=== PATIENT | female | born 1975 | race Caucasian/White ===

== ENCOUNTER 2021-02-12 11:27 | Day surgery (SDC) | payer OTHER, SELFPAY ==
[2021-02-12] VITALS (9 sets, daily range): BP systolic 113–149; BP diastolic 54–90; PULSE 59–85; RESP 14–16; TEMP 36.2–37.3; O2SAT 94–100; BMI 30.1
--- NOTE | 2021-02-12 11:56 | HP.PCM_ITS ---
HPI - General HPI Narrative ISHA RENTERIA, is a 45 F who presents for urethral dilation and cystoscopy under anesthesia. She presented to the office with urgency, straining to void and nocturia. Attempt was made at performing the cystoscopy in the office, and the urethra was too small to accommodate the cystoscope. Due to discomfort, an a ttempt was not made at dilation without anesthesia. Informed consent was obtained for this procedure. [facility] Medical History (Updated 02/12/21 @ 12:[address] Radah Telles MD) Asthma Hypertension Nocturia Non-smoker Other urethral stricture, female Stranguria Urgency of micturition Wears contact lenses Wears glasses Home Medications lactobacillus combination no.4 [Probiotic] 3,000 mmu cells PO DAILY 02/05/21 [History Last Taken Unknown] nitrofurantoin monohyd/m-cryst 100 mg PO BID 02/12/21 [History Last Taken Unknown] Allergy/AdvReac Type Severity Reaction Status Date / Time Penicillins Allergy Mild unknown Verified 02/12/21 11:49 Family History Mother Hypertension Heart disease Father Myocardial infarction Surgical History S/P Tubal ligation status Social History Smoking Status: Never smoker alcohol intake: current alcohol intake frequency: holidays/special occasions only substance use type: does not use caffeine: No what type of physical activity do you participate in: aerobics and weight training frequency: 3-4 times per week seatbelt use: always do you feel safe at home: Yes additional social history: - Carlos- Installs yessicaing Patient is gas station service attendant ROS ROS Narrative Patient has no fever, chills, fatigue or malaise. No change in vision, hearing and no issues with swallowing. No shortness of breath, cough or increased sputum. There is no chest pain or irregular heartbeat. She denies nausea, vomiting, diarrhea or other GI complaints. She has no increase in flank pain, esthela int pain or other specific musculoskeletal concerns. She denies rash, skin lesion, itching. No swelling or edema. She denies any other new neurologic, psychiatric or immunologic issues. Physical Exam Const alert, oriented x3 and no apparent distress HEENT normocephalic, head/scalp atraumatic, external ears normal, external nose normal and moist oral mucous membranes Eyes conjunctivae normal and no scleral icterus General Eye: normal appearance of both eyes Neck supple General: normal visual inspection and trachea midline Lymph Lymphatic: no lymphedema noted Chest inspection of chest normal Chest: symmetrical chest wall rise Resp normal respiratory effort, normal air movement, no retractions and no use of accessory muscles Cardio regular rate and regular rhythm GI soft to palpation, non-tender and non-distended no CVA tenderness Back/Spine no CVA tenderness and normal to inspection Extremity normal to inspection Skin no rashes or lesions noted, no wounds, skin turgor normal, no jaundice, no petechiae and no mottling Neuro oriented x3, CN's II-XII intact bilaterally and moves all extremities Psych mental status grossly normal, thought process normal, cooperative and affect normal Assessment & Plan Assessment/Plan (1) Other urethral stricture, female: PLAN: urethral dilation, cystoscopy under anesthesia. Informed consent was obtained. (2) Stranguria: (3) Urgency of micturition: (4) Nocturia: Procedure Criteria Type of Procedure Procedure Type: Elective Elective Risks - COVID COVID Risk Discussion: The surgeon/proceduralist and patient have discussed in detail the risk of exposure to and/or potential harm posed by the COVID-19 virus with having a surgery/procedure at this time versus the risk of delaying the surgery/procedure. It is not possible to know either the risk of delaying the surgery or procedure or chance of getting an infection with perfect accuracy, but a joint decision was made between the patient and the surgeon/proceduralist to proceed at this time with the scheduled surgery/procedure as indicated on the consent form.
--- NOTE | 2021-02-12 12:03 | PCM.OPRPT ---
Problems Associated Problem List Diagnoses (1) Nocturia: (2) Urgency of micturition: (3) Stranguria: (4) Other urethral stricture, female: Report of Operation Date of Procedure: 02/12/21 Pre-Operative Diagnosis: urethral stricture, urgency, nocturia, stranguria Post-Operative Diagnosis: same Surgery/Procedure Performed:: urethral dilation, cystoscopy Surgeon: Radha Telles Type of Anesthesia: MAC Description of Procedure: The patient is a 45-year-old female presented to the office with complaints of straining to void, increased urinary urgency and nocturia. An attempt was made to evaluate her in the office with cystoscopy. Her urethral meatus was too small to accommodate the scope and it was too uncomfortable to dilate her. She now presents for urethral dilation and cystoscopy under anesthesia. Informed consent was obtained. The patient was taken to the operating room and placed on the operating room table. Anesthesia monitored the head, neck, airway, IV access and vital signs throughout the case. Once anesthesia was appropriate ministered the patient was placed into dorsal lithotomy position was prepped and draped in usual sterile fashion. At this point the urethra was dilated from [address] to 26 Albanian with cracking of the mucosa mildly. The cystoscope was then inserted through the urethra under direct visualization into the urinary bladder. The bladder mucosa was visualized in its entirety with a 70 degree lens. There were no areas of erythema, ulceration or foreign body identified. There was mild trabeculation of the bladder muscle present. The ureteral orifices were located in the correct anatomic position on the trigone. At this time the bladder was emptied and the case was terminated. The patient was awakened and taken to the recovery room in good condition. There were no complications during this procedure. Grafts/Implants Used: None Complications None Admit VTE Documentation VTE Present on Admission: Yes VTE Mechan Device Prophylaxis: SCD's VTE Pharm Prophylaxis ordered?: No Reason prophylaxis not ordered:: Treatment Not Indicated
--- NOTE | 2021-02-12 12:04 | PCM.DC ---
Discharge Instructions Diet Discharge Diet: No restrictions Activity Discharge Activity: Return to Normal Activity May resume sexual activity in: 1 week Dressing / Incision Call your doctor if your incision/area has: Continuous Slow Oozing, Sudden Increased Bleeding, Increased Pain/ Swelling and Foul Smelling Discharge Call your doctor if you observe: Fever of 101 or Higher, Inability to urinate, Inability to have a bowel movement, Calf discomfort and Uncontrolled pain Follow Up Care Please Follow Up With: Radha Telles MD When: call office for appt in 1-2 weeks Test Results: Test results from this visit will be discussed in further detail at your follow-up appointment, if applicable. Discharge Plan Admission Attending Provider: Radha Telles Primary Care Provider: Monica Burton Discharge Orders/Prescriptions Prescriptions: New oxycodone-acetaminophen [oxycodone-acetaminophen] 1 TABLET tablet 2 tab PO Q8H PRN PRN (Reason: Pain) 3 Days Qty: 10 RF: 0 phenazopyridine [Pyridium] 200 MG tablet 200 mg PO TID PRN PRN (Reason: Bladder Spasms) 7 Days Qty: 30 RF: 0 Continued Probiotic 3 billion cell Capsule 3,000 mmu cells PO DAILY RF: 0 nitrofurantoin monohyd/m-cryst 100 mg capsule 100 mg PO BID RF: 0 Referrals / Follow Up: Monica Burton PA [Primary Care Provider] - Disposition Disposition (needs filled in before D/C Order can be placed): Home, Self Care
[2021-02-12] MEDS: Lactated Ringers 1,000 ML 100 ML IV ×2 (12:10→13:35)
[2021-02-12] MEDS: Cefazolin 2 GM in 0.9% Normal Saline 100 ML IV (13:17)
--- NOTE | 2021-02-12 13:54 | EKG12_ITS ---
Test Reason : Blood Pressure : / mmHG Vent. Rate : 068 BPM Atrial Rate : 068 BPM P-R Int : 198 ms QRS Dur : 132 ms QT Int : 456 ms P-R-T Axes : 056 -56 029 degrees QTc Int : 484 ms Normal sinus rhythm with sinus arrhythmia Left axis deviation Left bundle branch block Abnormal ECG Confirmed by CASSIA DUCKWORTH, BRITTANIE ([id number]), newspaper copy editor SOLITARIO PICHARDO ([id number]) on 02/14/2021 10:48:47 AM Referred By: Radha Telles Confirmed By:BRITTANIE ANTONY MD
== END 2021-02-12 17:10 | disposition home or self-care (01) ==
LOC: SDC 11:28 → AC 11:29
PROVIDERS: PCP Physician Assistant; Referring Provider Urology; Visit Provider Urology
PROC: 0T7D8ZZ Dilation of Urethra, Via Natural or Artificial Opening Endoscopic (ICD-10-PCS; CPT 52281; principal; 2021-02-12 12:50)
DX: N35.82 Other urethral stricture, female (principal); R30.0 Dysuria; R39.15 Urgency of urination; R35.1 Nocturia
CPT/HCPCS: 52281; 87426; 93005; C9803; J7120; J2405

== ENCOUNTER → 2021-06-12 | Outpatient (CLI) | payer OTHER, SELFPAY ==
[2021-06-12 18:01] LABS: Progesterone Level 0.84 ng/mL (See Comment)
[2021-06-12 18:17] LABS: Estradiol 328.8 pg/mL; Follicle Stimulating Hormone 8.3 mIU/mL; Luteinizing Hormone 11.7 mIU/mL; Prolactin 16.4 ng/mL; Thyroid Stim Hormone (TSH) 1.54 uIU/mL (0.358-3.74)
== END | disposition home or self-care (01) ==
LOC: WOBLAB 15:49
PROVIDERS: PCP Physician Assistant; Visit Provider Student in an Organized Health Care Education/Training Program
DX: N95.1 Menopausal and female climacteric states (principal); N93.9 Abnormal uterine and vaginal bleeding, unspecified
CPT/HCPCS: 36415; 82670; 83001; 83002; 84144; 84146; 84443

== ENCOUNTER 2021-07-30 12:35 | Outpatient (CLI) | payer OTHER, SELFPAY ==
--- NOTE | 2021-07-30 12:15 | CER_PTH ---
PATIENT: ISHA RENTERIA LOC: [facility] U#:[id number] AGE/SX: 45/F ROOM: RE07/30/[address]: Dr. Colette Soriano DO : 1975 BED: DIS: 07/30/2021 SPEC #: [id number] RECD: 07/30/21 13:17 STATUS: ROBERTH REMegan #: [id number] MICHAEL: 07/30/21 12:[address]: Colette Soriano DEPT: SURGICAL PATHOLOGY RECD BY: Jessie Jackson ENTERED: 07/30/21 13:17 SP TYPE: CERV OTHR DR: YONG Moreno Tissues: Uterine cervix, NOS Procedures: Surgery Specimen Level IV HEADER OPERATION: Cervical biopsy PRE-OP DIAGNOSIS: Cervical erosion TISSUE SUBMITTED: Cervical biopsy MICROSCOPIC DIAGNOSIS Cervix, biopsy: Fragments of squamous mucosa with focal erosion, acute and chronic inflammation. Negative for dysplasia/malignancy. See comment. MELIDA:annie 07/31/2021 COMMENT Clinical correlation and appropriate follow up are necessary. MICROSCOPIC DESCRIPTION Slides are reviewed. GROSS DESCRIPTION Received in fixative is one container labeled with the patient's name and designated cervical biopsy. The specimen consists of multiple irregular fragments of light lynch soft tissue that in aggregate measure 0.8 x 0.2 x <0.1 cm. The specimen is totally submitted in one cassette. / AM:annie 07/30/2021 TC:2 CPT: 00032
== END 2021-07-30 23:59 | disposition short-term general hospital (02) ==
LOC: LABSPEC 12:36
PROVIDERS: PCP Physician Assistant; Visit Provider Student in an Organized Health Care Education/Training Program
DX: N86 Erosion and ectropion of cervix uteri (principal)
CPT/HCPCS: 88305

== ENCOUNTER → 2022-05-17 | Outpatient (CLI) | payer OTHER, SELFPAY ==
--- NOTE | 2022-05-17 | BRBX_PTH ---
PATIENT: ISHA RENTERIA LOC: [facility] U#:[id number] AGE/SX: 46/F ROOM: RE05/17/[address]: Dr. Liliam Wyatt MD : 1975 BED: DIS: 05/17/2022 SPEC #: [id number] RECD: 05/17/22 12:03 STATUS: ROBERTH REMegan #: [id number] MICHAEL: 05/17/22 00:[address]: Liliam Wyatt DEPT: SURGICAL PATHOLOGY RECD BY: Julian Ramsey ENTERED: 05/17/22 12:03 SP TYPE: BREAST BX OTHR DR: YONG Moreno Tissues: Left breast, NOS Procedures: Surgery Specimen Level IV HEADER OPERATION: Left breast stereotactic biopsy PRE-OP DIAGNOSIS: Left breast calcifications posterior depth 2 o?clock position TISSUE SUBMITTED: Left breast core tissue ISCHEMIC TIME: 2 minutes FIXATION TIME: 56 hours MICROSCOPIC DIAGNOSIS Left breast, stereotactic core biopsy: Benign breast tissue with focal fibrocystic changes including stromal fibrosis, microcysts and usual ductal hyperplasia. Microcalcifications present. Negative for malignancy. See comment. MELIDA:annie 05/27/2022 COMMENT The specimen is sent to [facility] for expert opinion, reviewed by Dr. Palumbo and the above diagnosis is rendered. The complete report is viewable in the patient's EMR. Correlation with clinical, radiologic findings and appropriate follow up are necessary. This case is discussed with Dr. Wyatt on 05/24/2022. MICROSCOPIC DESCRIPTION Slides are reviewed. GROSS DESCRIPTION Received in fixative is one container labeled with the patient's name and designated left breast. The specimen consists of multiple elongated fragments of lynch-yellow fibroadipose tissue that in aggregate measure 4 x 2 x 0.3 cm. The entire specimen is submitted in two cassettes. / MELIDA:annie 05/17/2022 TC:1 CPT: 28897
--- NOTE | 2022-05-17 12:15 | PCM.OPRPT ---
Report of Operation Date of Procedure: 05/17/22 Pre-Operative Diagnosis: Left breast microcalcifications Post-Operative Diagnosis: Same Surgery/Procedure Performed:: Stereotactic guided left breast biopsy Surgeon: Liliam Wyatt Type of Anesthesia: Local Specimen's removed: Left breast calcifications 2:00 posterior depth Description of Procedure: Procedure: Left stereotactic core biopsy Indications: 46year-old female with microcalcifications in the upper outer quadrant/2:00 posterior depth of the left breast. Risk benefits were discussed the patient and she elected to proceed with stereotactic core biopsy with clip placement Description of procedure: Patient was brought into the mammography suite and laid prone on the stereotactic table. A timeout was completed verifying correct patient, procedure, site, specially, prior to beginning procedure. The left breast was prepped and draped in usual sterile fashion and using local anesthesia was obtained with 1% lidocaine with epi. Patient's left breast was positioned and placed into compression. Initial film showed calcifications are in the center of the compression paddle. 15? views were then taken. The calcifications were localized. The left breast was prepped draped in usual sterile fashion. An 8-gauge mammotome was set up according to the digital coordinates. The tract of the mammotome was anesthetized with local anesthesia and an incision was made with the 11 blade scalpel at the entry site. The mammotome was advanced to the prefire state. Pre-prior films were checked and verified. The mammotome was fired. Post fire films were also checked and verified. Biopsies were taken from the 7:00 to 12:00. The specimen was x-rayed and a good representation of the calcifications were within the specimen. Mammotome clip was placed at the 12 o'clock position. The mammotome was removed from the breast. An additional films were taken which showed all calcifications were removed and a clip was in place. Pressure was held for hemostasis. Once hemostasis was assured the wound was dressed with Steri-Strips and OpSite. The patient tolerated the procedure well and was discharged from the mammography suite good condition. complications: none
== END | disposition home or self-care (01) ==
LOC: BIRAD 10:34
PROVIDERS: PCP Physician Assistant; Visit Provider Surgery
DX: R92.0 Mammographic microcalcification found on diagnostic imaging of breast (principal)
CPT/HCPCS: 19081; 88305; J7050

== ENCOUNTER 2022-09-11 08:46 | Day surgery (SDC) | payer OTHER, SELFPAY ==
[2022-09-11] VITALS (7 sets, daily range): BP systolic 112–141; BP diastolic 63–71; PULSE 59–77; RESP 14–18; TEMP 36.1–37.2; O2SAT 96–100; BMI 35.2
--- NOTE | 2022-09-11 08:56 | H&P.OPEN ---
[facility] - General General Date of Admission: 09/11/22 HPI Narrative ISHA RENTERIA, is a 47 F who presents for screening colonoscopy. Patient never had previous colonoscopy. Patient denies any family history of colon cancer. Patient has bowel movements daily denies any blood. Patient denies any chronic abdominal pain/nausea/vomiting/reflux. [facility] Medical History (Updated 09/09/22 @ 10:03 by Flor Rivas) Alcohol use Asthma Asthma Cardiology follow-up encounter History of echocardiogram History of edema History of stress test Hypertension Nocturia Non-smoker Other urethral stricture, female Stranguria Urgency of micturition Wears contact lenses Wears glasses Home Medications lactobacillus combination no.4 3 billion cell capsule (Probiotic) 3,000 mmu cells PO DAILY 02/05/21 [History Last Taken Unknown] magnesium oxide 400 mg PO DAILY 06/20/22 [History Last Taken Unknown] calcium 600 mg capsule 600 mg PO DAILY 09/09/22 [History Last Taken Unknown] cholecalciferol (vitamin D3) 25 mcg (1,000 unit) capsule (Vitamin D3) 25 mcg PO DAILY 09/09/22 [History Last Taken Unknown] Allergy/AdvReac Type Severity Reaction Status Date / Time Acrylic Acid and Acrylates Allergy Intermediate Rash Verified 09/11/22 09:11 [steri-strips (acrylate)] Penicillins Allergy Mild Rash Verified 09/11/22 09:11 Family History Mother Hypertension Heart disease Father Myocardial infarction Surgical History (Updated 09/09/22 @ 10:03 by Flor Rivas) History of laparoscopy History of left breast biopsy Hx of cystoscopy S/P Tubal ligation status Social History Smoking Status: Never smoker alcohol intake: current alcohol intake frequency: holidays/special occasions only substance use type: does not use caffeine: No what type of physical activity do you participate in: aerobics and weight training frequency: 3-4 times per week seatbelt use: always do you feel safe at home: Yes additional social history: - Carlos- Nata driscoll Patient is online health and fitness coach Past Medical/Surgical History Planned Operation Planned Operative Procedure/s: CSCOPE OA Previous Hospitalizations/Surgeries HX Hospitalizations: No Any Problems With Anesthesia: No You/Your Family Experience Fever (Hyperthermia) With Anes: No Cholinesterase deficiency: No Cardiovascular Hx of Irregular Heartbeat and/or Afib: No Hx Heart Attack: No Hx Congestive Heart Failure: No Hx Hypertension: No Hx Pacemaker: No Respiratory Hx Chronic Obstructive Pulmonary Disease (COPD): No Hx Asthma: No Hx Emphysema: No Hx Sleep Apnea: No Hx Respiratory Tract Infection/Cold (presently): No Do You Snore Loudly (louder than talking or can be heard): No Do You Often Feel Tired/ Fatigued/ Sleepy Dring Daytime?: No Has Anyone Observed You Stop Breathing During Sleep?: No Result (for STOP score): Negative Smoking Status: Never smoker Gastrointestinal Hx Gastroesophageal Reflux: No Hx Ulcer: No Neurological Hx Seizures: No Hx Headaches: No Does patient have nerve stimulator: No Reproduction : No Miscellaneous Recent Exposure to Contagious Disease: No Allergies Acrylic Acid and Acrylates [steri-strips (acrylate)] Allergy (Intermediate, Verified 09/11/22 09:11) Rash Blistered under steristrip within 2 days of application Penicillins Allergy (Mild, Verified 09/11/22 09:11) Rash Discharge Is Pt Admitted From a Retirement, or a Intermediate: No After D/C, Where Do you Plan to Go: Return Home Physical Exam Const alert, oriented x3 and no apparent distress HEENT normocephalic and head/scalp atraumatic Resp normal respiratory effort Cardio regular rate GI soft to palpation and non-tender; Negative for non-distended Palpation: Negative for guarding Extremity no clubbing, cyanosis or edema Neuro CN's II-XII intact bilaterally Psych mental status grossly normal Assessment & Plan Assessment/Plan (1) Encounter for screening for malignant neoplasm of colon: Surgery Risks - Colonoscopy Risks Include but are not Limited To: Risks include but are not limited to: Bleeding, perforation requiring further surgery, inability to complete colonoscopy requiring barium enema.
[2022-09-11] MEDS: Lactated Ringers 1,000 ML 15 ML IV (09:11)
--- NOTE | 2022-09-11 09:57 | OP.COLON_ITS ---
Patient Name: Kellie Rose Procedure Date: 09/11/2022 9:25 AM Date of : 1975 Age: 47 Procedure: Colonoscopy Indications: Screening for colorectal malignant neoplasm Providers: Liliam Wyatt MD Medicines: Monitored Anesthesia Care Patient Profile: This is a 47 year old female. Last Colonoscopy: none. The patient's first colonoscopy is today. Complications: No immediate complications. Procedure: Pre-Anesthesia Assessment: - Prior to the procedure, a History and Physical was performed, and patient medications and allergies were reviewed. The patient's tolerance of previous anesthesia was also reviewed. The risks and benefits of the procedure and the sedation options and risks were discussed with the patient. All questions were answered, and informed consent was obtained. Prior Anticoagulants: The patient has taken no previous anticoagulant or antiplatelet agents. ASA Grade Assessment: Per anesthesia. After reviewing the risks and benefits, the patient was deemed in satisfactory condition to undergo the procedure. After I obtained informed consent, the scope was passed under direct vision. Throughout the procedure, the patient's blood pressure, pulse, and oxygen saturations were monitored continuously. The pediatric colonoscope was introduced through the anus and advanced to the cecum, identified by the ileocecal valve. The colonoscopy was performed without difficulty. The patient tolerated the procedure well. The quality of the bowel preparation was good. Scope In: 9:36:32 AM Scope Withdrawal Time 0 hours 9 minutes 23 seconds Scope Out: 9:51:12 AM Total Procedure Duration Time 0 hours 14 minutes 40 seconds Findings: Hemorrhoids were found on perianal exam. Non-bleeding internal hemorrhoids were found. The hemorrhoids were Grade I (internal hemorrhoids that do not prolapse). The entire examined colon appeared normal. Impression: - Hemorrhoids found on perianal exam. - Non-bleeding internal hemorrhoids. - The entire examined colon is normal. - No specimens collected. Recommendation: - Discharge patient to home. - Resume previous diet. - Continue present medications. - Repeat colonoscopy in 10 years for screening purposes. Procedure Code(s): --- Professional --- 97038, PT, Colonoscopy, flexible; diagnostic, including collection of specimen(s) by brushing or washing, when performed (separate procedure) Diagnosis Code(s): --- Professional --- Z12.11, Encounter for screening for malignant neoplasm of colon K64.0, First degree hemorrhoids CPT copyright 2017 [employer]. All rights reserved. The codes documented in this report are preliminary and upon foundry laborer coreroom review may be revised to meet current compliance requirements. MD Liliam Salinas MD 09/11/2022 9:56:45 AM This report has been signed electronically. Number of Addenda: 0 Note Initiated On: 09/11/2022 9:25 AM
--- NOTE | 2022-09-11 09:57 | OP.CCLET_ITS ---
09/11/2022 Monica Burton Re : Colonoscopy procedure for Kellie Burton This procedure was performed on Sunday, September 11, 2022. My impressions and recommendations are as follows: Impressions : - Hemorrhoids found on perianal exam. - Non-bleeding internal hemorrhoids. - The entire examined colon is normal. - No specimens collected. Recommendations : - Discharge patient to home. - Resume previous diet. - Continue present medications. - Repeat colonoscopy in 10 years for screening purposes. My findings are described in the full procedure note, which is enclosed. If I can be of further assistance, please feel free to contact me at Doctor phone number(s): , Work: . Sincerely, MD Liliam Salinas MD 09/11/2022 9:56:45 AM This report has been signed electronically.
== END 2022-09-11 11:01 | disposition home or self-care (01) ==
LOC: EN 08:47 → AC 08:48
PROVIDERS: PCP Physician Assistant; Referring Provider Physician Assistant; Visit Provider Surgery
PROC: 0DJD8ZZ Inspection of Lower Intestinal Tract, Via Natural or Artificial Opening Endoscopic (ICD-10-PCS; CPT 45378; principal; 2022-09-11 09:55)
DX: Z12.11 Encounter for screening for malignant neoplasm of colon (principal); K64.0 First degree hemorrhoids; I10 Essential (primary) hypertension
CPT/HCPCS: 45378; J7120; J2405